=== PATIENT | female | born 1995 | race Caucasian/White ===

== ENCOUNTER 2021-06-02 17:09 | Emergency (ER) | payer SELFPAY ==
[~2021-06-02] VITALS: Ht 165.1 cm; Wt 63.0 kg
[~2021-06-02 17:09] MED LIST: ACYCLOVIR800 MG PO; BIRTH CONTROL; CIPRO500 MG PO; IBUPROFEN600 MG PO; KEFLEX500 MG PO; LOESTRIN1 TAB PO
[2021-06-02] MEDS ORDERED: CEPHALEXIN500 MG PO (18:03)
[2021-06-02 18:06] VITALS: BP 115/71
== END 2021-06-02 18:06 | disposition home or self-care (01) | DRG 603 ==
LOC: ED 17:09
DX: L03.115 Cellulitis of right lower limb (principal); S90.424A Blister (nonthermal), right lesser toe(s), initial encounter; X58.XXXA Exposure to other specified factors, initial encounter; Y93.01 Activity, walking, marching and hiking